=== PATIENT | female | born 1945 | race American Indian/Alaskan Native ===

== ENCOUNTER 2019-08-26 13:15 | Emergency (ER) | payer OTHER ==
[2019-08-26 14:02] VITALS: BP 168/101; PULSE 92; TEMP 98.5
--- NOTE | 2019-08-26 14:27 | PDOC ---
Documentation entered by Derek Alegre SCRIBE, acting as scribe for Misti Sinclair MD. Misti Sinclair MD: This documentation has been prepared by the S[employer] forrest Xhesika, SCRIBE, under my direction and personally reviewed by me in its entirety. I confirm that the documentation accurately reflects all work, treatment, procedures, and medical decision making performed by me. History of Present Illness - General Stated Complaint: Shortness of Breath Time Seen by Provider: 08/26/19 13:22 History Source: Patient Exam Limitations: No Limitations - History of Present Illness Initial Comments: 08/26/19 13:48 The patient is a 73 year old female with a significant PMH of HTN who presents to the emergency department for 4 days of fever and rhinorrhea, post nasal drip and cough. Patient notes she returned from travel to [facility] with a stop in [facility] recently. Patients denies any contact with people with known COVID infections in the last 14 days. Pt states her has diarrhea but denies fevers or cough. Pt is not febrile here in the ED. The patient denies chest pain, shortness of breath, headache and dizziness. Denies nausea, vomiting, diarrhea and constipation. Denies dysuria, frequency, urgency and hematuria. Allergies: NKDA Past History - Past Medical History Allergies/Adverse Reactions: Allergies Allergy/AdvReac Type Severity Reaction Status Date / Time No Known Allergies Allergy Verified 08/26/19 13:56 Review of Systems - Review of Systems Able to Perform ROS?: Yes Comments:: 08/26/19 13:50 GENERAL/CONSTITUTIONAL: + fever. No chills. No weakness. HEAD, EYES, EARS, NOSE AND THROAT: No change in vision. No ear pain or discharge. No sore throat. +rhinorrhea, +post nasal drip CARDIOVASCULAR: No chest pain or shortness of breath. RESPIRATORY: + cough. No wheezing, or hemoptysis. GASTROINTESTINAL: No nausea, vomiting, diarrhea or constipation. GENITOURINARY: No dysuria, frequency, or change in urination. MUSCULOSKELETAL: No joint or muscle swelling or pain. No neck or back pain. SKIN: No rash NEUROLOGIC: No headache, vertigo, loss of consciousness, or change in strength/sensation. ENDOCRINE: No increased thirst. No abnormal weight change. HEMATOLOGIC/LYMPHATIC: No anemia, easy bleeding, or history of blood clots. ALLERGIC/IMMUNOLOGIC: No hives or skin allergy. *Physical Exam - Physical Exam 08/26/19 13:50 GENERAL: Awake, alert, and fully oriented, in no acute distress HEAD: No signs of trauma NECK: Normal ROM, supple, no lymphadenopathy, JVD, or masses LUNGS: Breath sounds equal, clear to auscultation bilaterally. No wheezes, and no crackles HEART: Regular rate and rhythm, normal S1 and S2, no murmurs, rubs or gallops ABDOMEN: Soft, nontender, normoactive bowel sounds. No guarding, no rebound. No masses EXTREMITIES: Normal range of motion, no edema. No clubbing or cyanosis. No cords, erythema, or tenderness NEUROLOGICAL: Cranial nerves II through XII grossly intact. SKIN: Warm, Dry, normal turgor, no rashes lesions noted. Medical Decision Making - Medical Decision Making 08/26/19 14:09 Pt presents to the ED complaining of a 4 day history of fever, nasal discharge, myalgias and cough. Given her age and symptoms, I will test for mcnamara virus check CXR. Patient is extremely well appearing and will likely be discharged home if CXR is negative. 08/26/19 14:15 Discharge - Discharge Information Problems reviewed: Yes Clinical Impression/Diagnosis: Upper respiratory infection Qualifiers: URI type: unspecified viral URI Qualified Code(s): J06.9 - Acute upper respiratory infection, unspecified Condition: Good Disposition: HOME - Admission No - Follow up/Referral - Patient Discharge Instructions Patient Printed Discharge Instructions: DI for Viral Upper Respiratory Infection -- Adult Additional Instructions: You came to the ED for fever and cough. These symptoms may indicate the mcnamara virus. You should stay at home until the department of health tells you that it is ok to go outside. You should stay at home except to get medical care, and should isolate yourself from other members of your family, even family members who live with you. Follow the instructions that you were given regarding self isolation at home. Return immediately to the ED for worsening shortness of breath or cough, fever, other new or worsening symptoms. Otherwise call the department of health or your primary care doctor for followup. You can call [phone] - Post Discharge Activity
== END 2019-08-26 16:00 | disposition home or self-care (01) ==
LOC: JER 13:15
DX: J06.9 Acute upper respiratory infection, unspecified (principal); B97.89 Other viral agents as the cause of diseases classified elsewhere
CPT/HCPCS: 71045-TC-FY; 87633; 87798; 87804; 87807; 99284-25